=== PATIENT | male | born 1975 | race Caucasian/White ===

== ENCOUNTER 2018-04-24 11:54 | Emergency (ER) | payer MEDICARE, SELFPAY ==
[2018-04-24 11:58] VITALS: BP 112/80; PULSE 111; RESP 20; TEMP 36.4; O2SAT 98; BMI 39.0
[2018-04-24 12:30] VITALS: BP 102/83; PULSE 95; O2SAT 96
--- NOTE | 2018-04-24 12:32 | ED.SOB ---
HPI - SOB/Dyspnea <PORTILLO Portillo - Last Filed: 04/24/18 14:31> General Chief Complaint: Shortness of Breath/Dyspnea Stated Complaint: cold for about a month, hard time breathing Time Seen by Provider: 04/24/18 12:24 Source: patient and family Mode of arrival: ambulatory Limitations: no limitations History of Present Illness Patient is a 42-year-old male nonsmoker presents with his with a history of diabetes with the chief complaint of cough for 6 weeks. He denies any fevers. He does complain of wheezing, productive cough, difficulty taking deep breath. He complains of chest pain associated with cough only. Complains of sore throat associated with cough only. He has been using [id number] medications without relief. He denies any fevers, nausea, vomiting, diarrhea, abdominal pain. Patient has history of GERD respiratory history including asthma or COPD. Related Data Home Medications Medication Instructions Recorded Confirmed pregabalin [Lyrica] #0 04/29/17 Previous Rx's Medication Instructions Recorded Glucose: Home Monitoring Kit kit ACHS #1 05/15/17 Glucose: Test Strips str ACHS #100 05/15/17 insulin aspart U-100 [Novolog 15 unit SQ TIDCC #1 box 05/15/17 Flexpen U-100 Insulin] insulin glargine [Lantus Solostar 50 unit SQ QAM #1 box 05/15/17 U-100 Insulin] albuterol sulfate [ProAir HFA] 2 puff INHALATION Q4-6H PRN #18 04/24/18 gram azithromycin See Label Instructions .ROUTE 04/24/18 .COMPLEX #6 tab Allergies Allergy/AdvReac Type Severity Reaction Status Date / Time No Known Drug Allergies Allergy Verified 04/24/18 11:58 Review of Systems <ZAIRE Portillo - Last Filed: 04/24/18 14:31> Review of Systems GENERAL: Denies chills, fatigue, malaise, fever, sweats. HEENT: Denies sinus pain, ear pain, sore throat, difficulty swallowing, dizziness. RESPIRATORY: See HPI CARDIOVASCULAR: Denies chest pain, palpitations, orthopnea, edema, GASTROINTESTINAL: Denies nausea, vomiting, abdominal pain, diarrhea, constipation, melena. : Denies dysuria, frequency, incontinence, hematuria, urinary retention. MUSCULOSKELETAL: denies weakness, joint pain, or bony pain SKIN: Denies rash, skin lesions, or other NEUROLOGIC: Denies weakness, headache, numbness, change in speech, confusion, seizures, incoordination. PSYCHIATRIC: No concerning psychosocial issues. 12 point review of systems is negative except for those stated above Exam <Yolanda BabbLATOSHA tavarezP-BC - Last Filed: 04/24/18 14:31> Narrative Exam Narrative: GENERAL: This is a well-nourished, well-developed patient, sitting on stretcher HEAD: Atraumatic. Normocephalic. No temporal or scalp tenderness. EYES: Pupils equal round and reactive. Extraocular motions intact. No scleral icterus. No injection or drainage. ENT: Nose without bleeding, purulent drainage or septal hematoma. Throat without erythema, tonsillar hypertrophy or exudate. Uvula midline. Airway patent. NECK: Trachea midline. No JVD or lymphadenopathy. Supple, nontender, no meningeal signs. CARDIOVASCULAR: Regular rate and rhythm without murmurs, gallops, or rubs. RESPIRATORY: Diffuse expiratory wheezes bilaterally to auscultation. Profuse cough on exam. No accessory muscle use noted. No stridor. No increased respiratory effort noted. GASTROINTESTINAL: Abdomen soft, non-tender, nondistended. No hepato-splenomegaly, or palpable masses. No guarding. EXTREMITIES: No clubbing, cyanosis, or edema. No joint tenderness, effusion, or edema noted. BACK: Nontender without deformity or crepitance. No flank tenderness. NEURO: AOx3. SKIN: No rash or erythema. Initial Vital Signs Initial Vital Signs: Vital Signs Temperature 97.6 F 04/24/18 11:58 Pulse Rate 111 H 04/24/18 11:58 Respiratory Rate 20 04/24/18 11:58 Blood Pressure 112/80 04/24/18 11:58 Pulse Oximetry 98 04/24/18 11:58 <Jaziel Hardin DO - Last Filed: 04/24/18 14:32> Initial Vital Signs Initial Vital Signs: Vital Signs Temperature 97.6 F 04/24/18 11:58 Pulse Rate 111 H 04/24/18 11:58 Respiratory Rate 20 04/24/18 11:58 Blood Pressure 112/80 04/24/18 11:58 Pulse Oximetry 98 04/24/18 11:58 Course <ZAIRE Portillo - Last Filed: 04/24/18 14:31> Orders Ordered: ED Orders 04/24/18 12:32 XR chest 2V Stat RT Consult Eval and Treat Now Discontinued Medications Albuterol (Ventolin) 2.5 mg INH NOW ONE Stop: 04/24/18 12:53 Last Admin: 04/24/18 12:54 Dose: 2.5 mg Vital Signs - 8 hr 04/24/18 11:58 04/24/18 12:30 04/24/18 12:54 Temperature 97.6 F Pulse Rate 111 H 95 H 82 Respiratory Rate 20 14 Blood Pressure 112/80 Blood Pressure [Left Arm] 102/83 Pulse Oximetry 98 96 96 04/24/18 13:26 04/24/18 13:56 Temperature Pulse Rate 86 96 H Respiratory Rate 18 Blood Pressure 110/72 Blood Pressure [Left Arm] 105/83 Pulse Oximetry 100 93 <Jaziel Hardin DO - Last Filed: 04/24/18 14:32> Orders Ordered: ED Orders 04/24/18 12:32 XR chest 2V Stat RT Consult Eval and Treat Now Discontinued Medications Albuterol (Ventolin) 2.5 mg INH NOW ONE Stop: 04/24/18 12:53 Last Admin: 04/24/18 12:54 Dose: 2.5 mg Vital Signs - 8 hr 04/24/18 11:58 04/24/18 12:30 04/24/18 12:54 Temperature 97.6 F Pulse Rate 111 H 95 H 82 Respiratory Rate 20 14 Blood Pressure 112/80 Blood Pressure [Left Arm] 102/83 Pulse Oximetry 98 96 96 04/24/18 13:26 04/24/18 13:56 Temperature Pulse Rate 86 96 H Respiratory Rate 18 Blood Pressure 110/72 Blood Pressure [Left Arm] 105/83 Pulse Oximetry 100 93 MDM - SOB/Dyspnea <ZAIRE Portillo - Last Filed: 04/24/18 14:31> Imaging Data Chest x-ray: Radiologist's impression: [address] [address] XRay Report Signed Patient: Denzel Richmond MR#: [id number] : 1975 Acct:[id number] Age/Sex: 42 / M Date of Service: 04/24/18 Loc: ED Accession Number: [id number] Procedure: XR chest 2V Ordering Provider: Yolanda Cuevas PROCEDURE: XR CHEST 2V INDICATIONS: cough x 6 weeks TECHNIQUE: 2 views of the chest were acquired. COMPARISON: [facility], , CHEST 1 VIEW, 05/14/2017, 0:53. FINDINGS: / Surgical changes and devices: None. Lungs and pleura: No pleural effusions or pneumothorax. Lungs are clear. Mediastinum: Mediastinal contours are normal. Heart size is normal. Bones and chest wall: No suspicious bony abnormalities. Soft tissues appear unremarkable. IMPRESSION: No acute cardiopulmonary findings. Dictated by: Peggy Gutiérrez M.D. on 04/24/2018 at 13:22 Approved by: Peggy Gutiérrez M.D. on 04/24/2018 at 13:22 MDM Narrative Medical decision making narrative: Patient is a 42-year-old male who presents with chief complaint of a cough for 6 weeks. He also complains of wheezing, which improved with a nebulizer treatment in the emergency department. Of note he did have a flight yesterday but denies any changes in his cough or shortness of breath. He is not tachycardic or hypoxic on exam. Given the duration of his cough, I would treat him with azithromycin at this point time. I did give him a prescription for an albuterol inhaler as well. Discussed at length return precautions including shortness of breath, chest pain, etc. Etc. Encouraged follow-up primary. The patient remained hemodynamically stable in the emergency department. No questions or concerns on discharge. Discharge Plan Departure Patient Disposition: Home Clinical Impression: Acute lower respiratory infection Discharge Date/Time: 04/24/18 13:57 Interventions: ED Discharge Assessment Last Done: 04/24/18 13:56 Instructions: DI for Pneumonia -- Adult, DI for Atypical Pneumonia Activity Restrictions/Additional Instructions: I am starting you on an antibiotic given that you had a productive cough for 6 weeks. I am also giving a prescription for an albuterol inhaler to help with her wheezing. Please follow-up with your primary care provider in the next few days. Come back to the emergency department for any acute concerns including worsening shortness of breath, chest pain, or other acute concerns. Please be sure to keep deep breathing and use the device given to by RT. Prescriptions: New albuterol sulfate [ProAir HFA] 90 mcg/actuation HFA aerosol inhaler 2 puff INHALATION Q4-6H PRN (Reason: shortness of breath or wheezing) Qty: 18 RF: 0 azithromycin 250 mg tablet See Label Instructions .ROUTE .COMPLEX Qty: 6 RF: 0 No Action pregabalin [Lyrica] 50 MG capsule Qty: 0 RF: 0 insulin glargine [Lantus Solostar U-100 Insulin] 100 UNIT/1 ML insulin pen 50 unit SQ QAM Qty: 1 RF: 1 insulin aspart U-100 [Novolog Flexpen U-100 Insulin] 100 UNIT/1 ML insulin pen 15 unit SQ TIDCC Qty: 1 RF: 1 Glucose: Home Monitoring Kit ACHS Qty: 1 RF: 0 Glucose: Test Strips ACHS Qty: 100 RF: 0 Referrals: Karena Rodriguez DO [Primary Care Provider] - <Jaziel Hardin DO - Last Filed: 04/24/18 14:32> Cosign ED Attending Alexature Attestation: I was available for consultation during this patient's emergency department encounter
--- NOTE | 2018-04-24 12:37 | ED_ITS ---
HPI - SOB/Dyspnea <PORTILLO Portillo - Last Filed: 04/24/18 14:31> General Chief Complaint: Shortness of Breath/Dyspnea Stated Complaint: cold for about a month, hard time breathing Time Seen by Provider: 04/24/18 12:24 Source: patient and family Mode of arrival: ambulatory Limitations: no limitations History of Present Illness Patient is a 42-year-old male nonsmoker presents with his with a history of diabetes with the chief complaint of cough for 6 weeks. He denies any fevers. He does complain of wheezing, productive cough, difficulty taking deep breath. He complains of chest pain associated with cough only. Complains of sore throat associated with cough only. He has been using icla-yhs-[id number] medications without relief. He denies any fevers, nausea, vomiting, diarrhea, abdominal pain. Patient has history of GERD respiratory history including asthma or COPD. Related Data Home Medications Medication Instructions Recorded Confirmed pregabalin [Lyrica] #0 04/29/17 Previous Rx's Medication Instructions Recorded Glucose: Home Monitoring Kit kit ACHS #1 05/15/17 Glucose: Test Strips str ACHS #100 05/15/17 insulin aspart U-100 [Novolog 15 unit SQ TIDCC #1 box 05/15/17 Flexpen U-100 Insulin] insulin glargine [Lantus Solostar 50 unit SQ QAM #1 box 05/15/17 U-100 Insulin] albuterol sulfate [ProAir HFA] 2 puff INHALATION Q4-6H PRN #18 04/24/18 gram azithromycin See Label Instructions .ROUTE 04/24/18 .COMPLEX #6 tab Allergies Allergy/AdvReac Type Severity Reaction Status Date / Time No Known Drug Allergies Allergy Verified 04/24/18 11:58 Review of Systems <ZAIRE Portillo - Last Filed: 04/24/18 14:31> Review of Systems GENERAL: Denies chills, fatigue, malaise, fever, sweats. HEENT: Denies sinus pain, ear pain, sore throat, difficulty swallowing, dizziness. RESPIRATORY: See HPI CARDIOVASCULAR: Denies chest pain, palpitations, orthopnea, edema, GASTROINTESTINAL: Denies nausea, vomiting, abdominal pain, diarrhea, constipation, melena. : Denies dysuria, frequency, incontinence, hematuria, urinary retention. MUSCULOSKELETAL: denies weakness, joint pain, or bony pain SKIN: Denies rash, skin lesions, or other NEUROLOGIC: Denies weakness, headache, numbness, change in speech, confusion, seizures, incoordination. PSYCHIATRIC: No concerning psychosocial issues. 12 point review of systems is negative except for those stated above Exam <Yolanda BabbLATOSHA tavarezP-BC - Last Filed: 04/24/18 14:31> Narrative Exam Narrative: GENERAL: This is a well-nourished, well-developed patient, sitting on stretcher HEAD: Atraumatic. Normocephalic. No temporal or scalp tenderness. EYES: Pupils equal round and reactive. Extraocular motions intact. No scleral icterus. No injection or drainage. ENT: Nose without bleeding, purulent drainage or septal hematoma. Throat without erythema, tonsillar hypertrophy or exudate. Uvula midline. Airway patent. NECK: Trachea midline. No JVD or lymphadenopathy. Supple, nontender, no meningeal signs. CARDIOVASCULAR: Regular rate and rhythm without murmurs, gallops, or rubs. RESPIRATORY: Diffuse expiratory wheezes bilaterally to auscultation. Profuse cough on exam. No accessory muscle use noted. No stridor. No increased respiratory effort noted. GASTROINTESTINAL: Abdomen soft, non-tender, nondistended. No hepato-splenomegaly , or palpable masses. No guarding. EXTREMITIES: No clubbing, cyanosis, or edema. No joint tenderness, effusion, or edema noted. BACK: Nontender without deformity or crepitance. No flank tenderness. NEURO: AOx3. SKIN: No rash or erythema. Initial Vital Signs Initial Vital Signs: Vital Signs Temperature 97.6 F 04/24/18 11:58 Pulse Rate 111 H 04/24/18 11:58 Respiratory Rate 20 04/24/18 11:58 Blood Pressure 112/80 04/24/18 11:58 Pulse Oximetry 98 04/24/18 11:58 <Jaziel Hardin DO - Last Filed: 04/24/18 14:32> Initial Vital Signs Initial Vital Signs: Vital Signs Temperature 97.6 F 04/24/18 11:58 Pulse Rate 111 H 04/24/18 11:58 Respiratory Rate 20 04/24/18 11:58 Blood Pressure 112/80 04/24/18 11:58 Pulse Oximetry 98 04/24/18 11:58 Course <ZAIRE Portillo - Last Filed: 04/24/18 14:31> Orders Ordered: ED Orders 04/24/18 12:32 XR chest 2V Stat RT Consult Eval and Treat Now Discontinued Medications Albuterol (Ventolin) 2.5 mg INH NOW ONE Stop: 04/24/18 12:53 Last Admin: 04/24/18 12:54 Dose: 2.5 mg Vital Signs - 8 hr 04/24/18 11:58 04/24/18 12:30 04/24/18 12:54 Temperature 97.6 F Pulse Rate 111 H 95 H 82 Respiratory Rate 20 14 Blood Pressure 112/80 Blood Pressure [Left Arm] 102/83 Pulse Oximetry 98 96 96 04/24/18 13:26 04/24/18 13:56 Temperature Pulse Rate 86 96 H Respiratory Rate 18 Blood Pressure 110/72 Blood Pressure [Left Arm] 105/83 Pulse Oximetry 100 93 <Jaziel Hardin DO - Last Filed: 04/24/18 14:32> Orders Ordered: ED Orders 04/24/18 12:32 XR chest 2V Stat RT Consult Eval and Treat Now Discontinued Medications Albuterol (Ventolin) 2.5 mg INH NOW ONE Stop: 04/24/18 12:53 Last Admin: 04/24/18 12:54 Dose: 2.5 mg Vital Signs - 8 hr 04/24/18 11:58 04/24/18 12:30 04/24/18 12:54 Temperature 97.6 F Pulse Rate 111 H 95 H 82 Respiratory Rate 20 14 Blood Pressure 112/80 Blood Pressure [Left Arm] 102/83 Pulse Oximetry 98 96 96 04/24/18 13:26 04/24/18 13:56 Temperature Pulse Rate 86 96 H Respiratory Rate 18 Blood Pressure 110/72 Blood Pressure [Left Arm] 105/83 Pulse Oximetry 100 93 MDM - SOB/Dyspnea <ZAIRE Portillo - Last Filed: 04/24/18 14:31> Imaging Data Chest x-ray: Radiologist's impression: [address] [address] XRay Report Signed Patient: Denzel Richmond MR#: [id number] : 1975 Acct:[id number] Age/Sex: 42 / M Date of Service: 04/24/18 Loc: ED Accession Number: [id number] Procedure: XR chest 2V Ordering Provider: Yolanda Cuevas PROCEDURE: XR CHEST 2V INDICATIONS: cough x 6 weeks TECHNIQUE: 2 views of the chest were acquired. COMPARISON: [facility], , CHEST 1 VIEW, 05/14/2017, 0:53. FINDINGS: / Surgical changes and devices: None. Lungs and pleura: No pleural effusions or pneumothorax. Lungs are clear. Mediastinum: Mediastinal contours are normal. Heart size is normal. Bones and chest wall: No suspicious bony abnormalities. Soft tissues appear unremarkable. IMPRESSION: No acute cardiopulmonary findings. Dictated by: Peggy Gutiérrez M.D. on 04/24/2018 at 13:22 Approved by: Peggy Gutiérrez M.D. on 04/24/2018 at 13:22 MDM Narrative Medical decision making narrative: Patient is a 42-year-old male who presents with chief complaint of a cough for 6 weeks. He also complains of wheezing, which improved with a nebulizer treatment in the emergency department. Of note he did have a flight yesterday but denies any changes in his cough or shortness of breath. He is not tachycardic or hypoxic on exam. Given the duration of his cough, I would treat him with azithromycin at this point time. I did give him a prescription for an albuterol inhaler as well. Discussed at length return precautions including shortness of breath, chest pain, etc. Etc. Encouraged follow-up primary. The patient remained hemodynamically stable in the emergency department. No questions or concerns on discharge. Discharge Plan Departure Patient Disposition: Home Clinical Impression: Acute lower respiratory infection Discharge Date/Time: 04/24/18 13:57 Interventions: ED Discharge Assessment Last Done: 04/24/18 13:56 Instructions: DI for Pneumonia -- Adult, DI for Atypical Pneumonia Activity Restrictions/Additional Instructions: I am starting you on an antibiotic given that you had a productive cough for 6 weeks. I am also giving a prescription for an albuterol inhaler to help with her wheezing. Please follow-up with your primary care provider in the next few days. Come back to the emergency department for any acute concerns including worsening shortness of breath, chest pain, or other acute concerns. Please be sure to keep deep breathing and use the device given to by RT. Prescriptions: New albuterol sulfate [ProAir HFA] 90 mcg/actuation HFA aerosol inhaler 2 puff INHALATION Q4-6H PRN (Reason: shortness of breath or wheezing) Qty: 18 RF: 0 azithromycin 250 mg tablet See Label Instructions .ROUTE .COMPLEX Qty: 6 RF: 0 No Action pregabalin [Lyrica] 50 MG capsule Qty: 0 RF: 0 insulin glargine [Lantus Solostar U-100 Insulin] 100 UNIT/1 ML insulin pen 50 unit SQ QAM Qty: 1 RF: 1 insulin aspart U-100 [Novolog Flexpen U-100 Insulin] 100 UNIT/1 ML insulin pen 15 unit SQ TIDCC Qty: 1 RF: 1 Glucose: Home Monitoring Kit ACHS Qty: 1 RF: 0 Glucose: Test Strips ACHS Qty: 100 RF: 0 Referrals: Karena Rodriguez DO [Primary Care Provider] - <Jaziel Hardin DO - Last Filed: 04/24/18 14:32> Cosign ED Attending Alexature Attestation: I was available for consultation during this patient's emergency department encounter
[2018-04-24 12:54] VITALS: PULSE 82; RESP 14; O2SAT 96
[2018-04-24] MEDS: ALBUTEROL 2.5 MG/3 ML NEB (ADULT) INH (12:54)
[2018-04-24 13:26] VITALS: BP 105/83; PULSE 86; O2SAT 100
[2018-04-24 13:56] VITALS: BP 110/72; PULSE 96; RESP 18; O2SAT 93
== END 2018-04-24 13:57 | disposition home or self-care (01) ==
PROVIDERS: Emergency Provider Nurse Practitioner Family; Family Provider Family Medicine; PCP Family Medicine
DX: J22 Unspecified acute lower respiratory infection (principal)
CPT/HCPCS: 71046; 94640; 94667; 99282; 99283; J7613

== ENCOUNTER 2022-05-26 20:01 | Emergency (ER) | payer OTHER, SELFPAY ==
[2022-05-26 20:06] VITALS: BP 129/94; PULSE 74; RESP 16; TEMP 36.3; O2SAT 95; BMI 37.5
[2022-05-26] MEDS: TET,DIPH,PERTUSS(ACELL),VAC/PF 0.5 ML SYRINGE IM (21:20)
--- NOTE | 2022-05-26 23:01 | ED_ITS ---
HPI - Wound/Laceration General Chief Complaint: Wound/Laceration Stated Complaint: Left middle finger lac Time Seen by Provider: 05/26/22 21:19 Source: patient Mode of arrival: Ambulatory History of Present Illness HPI narrative: 46-year-old gentleman with a history of diabetes, hypothyroidism, hypertension, hyperlipidemia with chronic back pain who presents after cutting his left middle finger on a knife while he was chopping onions. It is flap on the medial edge of the tip of the finger not involving the nail bed. Bleeding has been controlled. Related Data Home Medications Medication Instructions Recorded Confirmed pregabalin 50 mg capsule (Lyrica) ##0 04/29/17 alendronate 70 mg tablet 70 mg PO QWEEK 10/29/20 10/29/20 cyclobenzaprine 10 mg tablet 10 mg PO BEDTIME 10/29/20 10/29/20 empagliflozin 25 mg tablet 25 mg PO DAILY 10/29/20 10/29/20 gabapentin 400 mg capsule 400 mg PO TID 10/29/20 10/29/20 levothyroxine 100 mcg capsule 100 mcg PO DAILY 10/29/20 10/29/20 lisinopril 20 mg tablet 20 mg PO DAILY 10/29/20 10/29/20 simvastatin 80 mg tablet 80 mg PO DAILY 10/29/20 10/29/20 Previous Rx's Medication Instructions Recorded Glucose: Home Monitoring Kit kit ACHS ##1 05/15/17 Glucose: Test Strips str ACHS ##100 05/15/17 insulin aspart U-100 100 unit/mL 15 unit (0.15 mL) SQ TIDCC ##1 05/15/17 (3 mL) subcutaneous pen (Novolog Flexpen U-100 Insulin aspart) insulin glargine 100 unit/mL (3 50 unit (0.5 mL) SQ QAM ##1 05/15/17 mL) subcutaneous pen (Lantus Solostar U-100 Insulin) albuterol sulfate 90 mcg/actuation 2 puff inhalation Q4-6H PRN 04/24/18 aerosol inhaler (ProAir HFA) shortness of breath or wheezing #18 grams azithromycin 250 mg tablet See Rx Instructions PO .COMPLEX #6 04/24/18 tabs txrpvpqp-heimmsxem-bkjsizqpl 3.5 4 drp otic (ear) TID #10 mL 07/09/21 mg/mL-10,000 unit/mL-1 % ear solution Allergies Allergy/AdvReac Type Severity Reaction Status Date / Time No Known Drug Allergies Allergy Verified 10/29/20 13:04 Review of Systems Review of Systems Narrative: Remainder of complete review of systems is otherwise unremarkable except for that included in the HPI. Patient History Family History Brother Hypertension Father Hypertension CVA (cerebral infarction) Hyperlipidemia Grandfather Hypertension Grandmother Hypertension Mother Hypertension Hyperlipidemia Grandfather Hypertension Grandfather OR (myocardial infarction) Grandmother Hypertension Social History Smoking Status: Never smoker Smoking Status: Never smoker alcohol intake frequency: holidays/special occasions only Substance Use Type: does not use Exam Initial Vital Signs Initial Vital Signs: Vital Signs Temperature 97.3 F L 05/26/22 20:06 Pulse Rate 74 05/26/22 20:06 Respiratory Rate 16 05/26/22 20:06 Blood Pressure 129/94 H 05/26/22 20:06 Pulse Oximetry 95 05/26/22 20:06 Oxygen Delivery Method 05/26/22 20:06 General: Alert appropriate in no acute distress Respiratory: Able to speak in full sentences, no obvious respiratory distress Skin: No obvious rashes, warm and dry Neurologic: Grossly intact no obvious asymmetries or abnormalities Psych: appropriate insight and affect, cooperative Extremity: 1.5 cm flap like lesion on the medial aspect of the left middle finger. He is neurovascularly intact. Nail bed is not involved. Procedures Laceration Repair Left middle finger: Time of procedure: 23:17 Site: hand Side (If applicable): left Size (cm): 1.5 Description: flap Depth: simple, single layer Local Anesthetic: lidocaine 2% Amount of anesthesia used (mL): 2 Pre-repair: wound explored, irrigated extensively and deep structures intact Skin layer closed with: nylon Skin layer suture size: 4-0 Number of sutures: 2 Technique: simple, interrupted and horizontal mattress Course Orders Ordered: Discontinued Medications Diphtheria/Tetanus/Acell Pertussis (Tet,Diph,Pertuss(Acell),Vac/Pf 0.5 Ml Syringe) 0.5 ml IM .ONCE ONE Stop: 05/26/22 20:38 Last Admin: 05/26/22 21:20 Dose: 0.5 ml Documented By: AT Vital Signs Vital signs: Vital Signs - 8 hr 05/26/22 20:06 Temperature 97.3 F L Pulse Rate 74 Respiratory Rate 16 Blood Pressure 129/94 H Pulse Oximetry 95 Oxygen Delivery Method Room Air MDM - Wound/Laceration MDM Narrative Medical decision making narrative: CC: Small laceration to the distal left middle finger. New problem, self- limited Complicating co-morbidities: Diabetes Corroborating data: Data collected from: patient, Differential considered: No bed involvement, tendon or deep structure involvement, infection Exam documented above, pertinent findings include: Fairly superficial flap-like laceration without deep tissue involvement Treatments: A single horizontal mattress and a single interrupted mattress or used to close the space and reapproximate edges of the wound Discussion: Superficial laceration easily repaired. Considered need for imaging however once anesthetized the superficial nature of it was easily confirmed and I did not feel that imaging was required today. Reviewed signs and symptoms of infection, keeping the wound covered and removing stitches on or about 06/02 Disposition: see below, along with detailed discharge instructions that have been reviewed with patient as well as indications for ED re-evaluation and additional outpatient follow up Discharge Plan Departure Patient Disposition: Home Clinical Impression: Laceration Instructions: DI for Minor Laceration Activity Restrictions/Additional Instructions: Thank you for coming in tonight With 2 stitches I was able to close up your finger laceration. The stitches will need to come out on or about June 02. Keep the area covered with a little antibiotic ointment. If there is any signs of infection, increasing redness, swelling increasing pain you do need to be seen and re-evaluated. I hope this heals quickly Prescriptions: No Action cyclobenzaprine 10 mg tablet 10 mg PO BEDTIME alendronate 70 mg tablet 70 mg PO QWEEK empagliflozin 25 mg tablet 25 mg PO DAILY gabapentin 400 mg capsule 400 mg PO TID lisinopril 20 mg tablet 20 mg PO DAILY soypnlks-qjvdawohq-QV 3.5-10,000-1 mg/mL-unit/mL-% solution 4 drp otic (ear) TID Qty: 10 2RF simvastatin 80 mg tablet 80 mg PO DAILY levothyroxine 100 mcg capsule 100 mcg PO DAILY pregabalin [Lyrica] 50 MG capsule Qty: 0 insulin glargine [Lantus Solostar U-100 Insulin] 100 UNIT/1 ML insulin pen 50 unit SQ QAM Qty: 1 1RF insulin aspart U-100 [Novolog Flexpen U-100 Insulin] 100 UNIT/1 ML insulin pen 15 unit SQ TIDCC Qty: 1 1RF Glucose: Home Monitoring Kit ACHS Qty: 1 0RF Glucose: Test Strips ACHS Qty: 100 0RF albuterol sulfate [ProAir HFA] 90 mcg/actuation HFA aerosol inhaler 2 puff INHALATION Q4-6H PRN (Reason: shortness of breath or wheezing) Qty: 18 0RF azithromycin 250 mg tablet See Rx Instructions .ROUTE .COMPLEX Qty: 6 0RF Rx Instructions: take 500 mg today (day 1), then 250 mg for 4 days (days 2-5) Referrals: Karena Rodriguez DO [Primary Care Provider] - Stand Alone Forms: Patient Portal/API
[2022-05-26 23:27] VITALS: BP 139/95; PULSE 80; RESP 20; O2SAT 95
== END 2022-05-26 23:27 | disposition home or self-care (01) ==
PROVIDERS: Emergency Provider Emergency Medicine; Family Provider Family Medicine; PCP Family Medicine
DX: S61.213A Laceration without foreign body of left middle finger without damage to nail, initial encounter (principal); W26.0XXA Contact with knife, initial encounter; Z79.899 Other long term (current) drug therapy; Z23 Encounter for immunization
CPT/HCPCS: 12001; 90471; 99283; 90715

== ENCOUNTER 2023-08-10 18:17 | Emergency (ER) | payer OTHER, SELFPAY ==
[2023-08-10] VITALS (8 sets, daily range): BP systolic 113–138; BP diastolic 66–86; PULSE 67–108; RESP 16–18; TEMP 36.9; O2SAT 93–97; BMI 32.5
[2023-08-10] MEDS: SODIUM CHLORIDE 0.9% 1,000 ML 1000 ML IV (18:46)
[2023-08-10] MEDS: ONDANSETRON 4 MG/2 ML INJ IV (18:47)
[2023-08-10 18:52] LABS: Add Manual Diff / Slide Review NO; Basophils Absolute Auto 100 /uL (0-100); Basophils Percent Auto 0.7 % (0-2); Eosinophils Absolute Auto 200 /uL (0-450); Eosinophils Percent Auto 2.1 % (2-4); Hematocrit 45.4 % (41-53); Hemoglobin 15.7 g/dL (13.5-17.5); Lymphocytes Absolute Auto 2300 /uL (1100-4500); Lymphocytes Percent Auto 25.7 % (25-40); Mean Corpuscular HGB Conc 34.6 % (30-36); Mean Corpuscular Hemoglobin 30.3 PG (26-34); Mean Corpuscular Volume 87.4 fL (80-100); Monocytes Absolute Auto 500 /uL (0-900); Monocytes Percent Auto 5.9 % (3-14); Neutrophils Absolute Auto 6000 /uL (1500-7000); Neutrophils Percent Auto 65.6 % (50-75); Platelet Count 328 X10^3/uL (150-400); Red Blood Cell Count 5.19 X10^6/uL (4.5-5.9); Red Cell Distribution Width 12.7 % (11.6-14.8); White Blood Cell Count 9.1 X10^3/uL (4.5-11.0)
[2023-08-10 19:00] LABS: Alanine Aminotransferase 41 IU/L (<50); Albumin 4.7 g/dL (3.5-5.0); Albumin Globulin Ratio 1.4 (1.0-2.8); Alkaline Phosphatase 71 U/L (38-126); Aspartate Aminotransferase 27 IU/L (17-59); BUN Creatinine Ratio 14.8 (6-22); Bilirubin Total 0.6 mg/dL (0.2-1.3); Blood Urea Nitrogen 18 mg/dL (9-20); Calcium 9.8 mg/dL (8.4-10.2); Carbon Dioxide 31 mmol/L (22-32); Chloride 101 mmol/L (98-107); Estimated Glomerular Filt Rate > 60 mL/min (>60); Globulin 3.4 g/dL (1.7-4.1); Glucose 130 mg/dL (70-100); HEMOLYSIS < 15 (0-50); Potassium 4.5 mmol/L (3.4-5.1); Sodium 139 mmol/L (137-145); Total Protein 8.1 g/dL (6.3-8.2)
--- NOTE | 2023-08-10 20:26 | ED_ITS ---
HPI - Headache General Chief Complaint: Headache Stated Complaint: headaches for 3 weeks Time Seen by Provider: 08/10/23 20:03 Source: patient, RN notes reviewed and old records reviewed Mode of arrival: Ambulatory History of Present Illness HPI Narrative: 47-year-old male with history hypertension, diabetes, CRPS for his lower extremity patient presents with complaint of headache for the past 3 weeks. Describes it as starting with just a mild headache and then progressively worsening. It is never resolved it improves a little bit about 2 in the afternoon and then worsened again in the evening around 6:00 p.m.. He notes bright lights make it symptoms worse. Being in the dark and ice are helpful. He is tried Excedrin as well as Vicodin for his headaches which he describes as mildly helpful. He states it has never gone away. He describes it as behind both his eyes but starting more on the right. He denies any acute vision changes. He has had nausea but no vomiting, no chest pain or shortness of breath, no new numbness tingling or weakness extremities. Does note some paresthesias and chronic pain lower extremity secondary to CRPS. Patient states no syncope. No fevers. She developed a headache and a couple days later had some nasal congestion cough cold symptoms last 3 or 4 days but then resolved. Has not ever had any speech difficulties. Has not had migraines in the past that he is aware of. He did have a change to his medications stopped his insulin 2 weeks ago because his A1c was 5.1. Sugars have ranged from 60-180. Patient notes he has had right ankle surgery x4, tonsils adenoids and uvulectomy. No known drug allergies. No tobacco, alcohol or recreational drugs. Accompanied by his . Related Data Home Medications Medication Instructions Recorded Confirmed pregabalin 50 mg capsule (Lyrica) ##0 04/29/17 alendronate 70 mg tablet 70 mg PO QWEEK 10/29/20 10/29/20 cyclobenzaprine 10 mg tablet 10 mg PO BEDTIME 10/29/20 10/29/20 empagliflozin 25 mg tablet 25 mg PO DAILY 10/29/20 10/29/20 gabapentin 400 mg capsule 400 mg PO TID 10/29/20 10/29/20 levothyroxine 100 mcg capsule 100 mcg PO DAILY 10/29/20 10/29/20 lisinopril 20 mg tablet 20 mg PO DAILY 10/29/20 10/29/20 simvastatin 80 mg tablet 80 mg PO DAILY 10/29/20 10/29/20 Previous Rx's Medication Instructions Recorded Glucose: Home Monitoring Kit kit ACHS ##1 05/15/17 Glucose: Test Strips str ACHS ##100 05/15/17 insulin aspart U-100 100 unit/mL 15 unit (0.15 mL) SQ TIDCC ##1 05/15/17 (3 mL) subcutaneous pen (Novolog FlexPen U-100 Insulin aspart) insulin glargine 100 unit/mL (3 50 unit (0.5 mL) SQ QAM ##1 05/15/17 mL) subcutaneous pen (Lantus Solostar U-100 Insulin) albuterol sulfate 90 mcg/actuation 2 puff inhalation Q4-6H PRN 04/24/18 aerosol inhaler (ProAir HFA) shortness of breath or wheezing #18 grams azithromycin 250 mg tablet See Rx Instructions PO .COMPLEX #6 04/24/18 tabs [id number]-gzdmndvtm-rbfdtkbvk 3.5 4 drp otic (ear) TID #10 mL 10/29/20 mg/mL-10,000 unit/mL-1 % ear solution amoxicillin 875 mg-potassium 1 tab PO BID #20 tabs 08/10/23 clavulanate 125 mg tablet Allergies Allergy/AdvReac Type Severity Reaction Status Date / Time No Known Drug Allergies Allergy Verified 08/10/23 18:24 Review of Systems Review of Systems ROS Unobtainable: All systems reviewed & are unremarkable except as noted in HPI and below Patient History Family History Brother Hypertension Father Hypertension CVA (cerebral infarction) Hyperlipidemia Grandfather Hypertension Grandmother Hypertension Mother Hypertension Hyperlipidemia Grandfather Hypertension Grandfather IA (myocardial infarction) Grandmother Hypertension Social History Smoking Status: Never smoker Smoking Status: Never smoker alcohol intake frequency: holidays/special occasions only Substance Use Type: does not use Exam Narrative Exam Narrative: GEN: well nourished, well appearing male, alert and oriented x 3, patient appears to be in moderate distress. HEENT: Atraumatic, pupils are equal round reactive to light, extraocular movements are intact, nares are clear, TMs are clear with no fluid, there is no conjunctival pallor. Throat is clear without any exudates, erythema, tonsillar enlargement or uvular deviation, no facial droop. HEART: Regular rate and rhythm without murmur, clicks, rubs. Pulses are equal in upper and lower extremities LUNGS:Lungs clear to auscultation, no wheezes, rales, crackles, chest moves symmetrically ABD:bowel sounds normal, soft, non-tender, no guarding, rebound, rigidity, no masses noted, no hepatosplenomegaly :No CVA tenderness MSCL: Non-tender, no muscle atrophy, muscles strength 5/5 upper and lower extremities, full range of motion, normal gait NEURO:CN 2-12 intact, sensation normal, reflexes 2/4 upper and lower extremities. finger nose finger test normal, heel winkler test normal SKIN: Rash, erythema or other skin changes. Initial Vital Signs Initial Vital Signs: Vital Signs Temperature 98.4 F 08/10/23 18:24 Pulse Rate 108 H 08/10/23 18:24 Respiratory Rate 18 08/10/23 18:24 Blood Pressure 138/86 08/10/23 18:24 Pulse Oximetry 97 08/10/23 18:24 Oxygen Delivery Method Room Air 08/10/23 18:24 Course Orders Ordered: ED Orders 08/10/23 18:39 CMP [Comprehensive Metabolic Panel] Stat Complete Blood Count AUTO DIFF Stat 08/10/23 20:35 CT angio head and neck Stat CT head/brain wo con Stat Discontinued Medications Amoxicillin/Clavulanate Potassium (Amoxicillin/Clav 875/125 Mg) 1 tab PO NOW ONE Stop: 08/10/23 22:07 Last Admin: 08/10/23 22:11 Dose: 1 tab Documented By: ENMA Sodium Chloride (Normal Saline 0.9%) 1,000 mls @ 1,000 mls/hr IV BOLUS ONE Stop: 08/10/23 19:36 Last Infusion: 08/10/23 20:13 Dose: Infused Documented By: Admin: 08/10/23 18:46 Dose: 1,000 mls/hr Documented By: TESS Ketorolac Tromethamine (Ketorolac 30 Mg/Ml Vial) 15 mg IV NOW ONE Stop: 08/10/23 21:19 Last Admin: 08/10/23 21:26 Dose: 15 mg Documented By: ENMA Metoclopramide HCl (Metoclopramide 10 Mg/2 Ml Inj) 10 mg IV NOW ONE Stop: 08/10/23 21:56 Last Admin: 08/10/23 22:01 Dose: 10 mg Documented By: ENMA Morphine Sulfate (Morphine 4 Mg/Ml Inj) 4 mg IV NOW ONE Stop: 08/10/23 22:06 Last Admin: 08/10/23 22:11 Dose: 4 mg Documented By: ENMA Ondansetron HCl (Ondansetron 4 Mg/2 Ml Inj) 4 mg IV NOW ONE Stop: 08/10/23 18:38 Last Admin: 08/10/23 18:47 Dose: 4 mg Documented By: TESS Ondansetron HCl (Ondansetron 4 Mg Odt Prepack) 1 bottle MISC DIRECTED ONE Stop: 08/10/23 22:27 Last Admin: 08/10/23 22:41 Dose: 1 bottle Documented By: RAQUEL Tramadol HCl (Tramadol 50 Mg Prepack) 1 bottle MISC DIRECTED ONE Stop: 08/10/23 22:26 Last Admin: 08/10/23 22:41 Dose: 1 bottle Documented By: RAQUEL Vital Signs Vital signs: Vital Signs - 8 hr 08/10/23 18:24 08/10/23 20:35 08/10/23 20:36 Temperature 98.4 F Pulse Rate 108 H 75 Respiratory Rate 18 Blood Pressure 138/86 113/66 Pulse Oximetry 97 97 Oxygen Delivery Method Room Air 08/10/23 20:36 08/10/23 21:00 08/10/23 21:00 Temperature Pulse Rate 75 72 Respiratory Rate Blood Pressure 123/83 Pulse Oximetry 96 94 Oxygen Delivery Method 08/10/23 21:30 08/10/23 21:30 08/10/23 22:00 Temperature Pulse Rate 75 67 Respiratory Rate Blood Pressure 128/74 Pulse Oximetry 93 94 Oxygen Delivery Method 08/10/23 22:30 08/10/23 22:41 08/10/23 22:41 Temperature Pulse Rate 74 78 Respiratory Rate 16 Blood Pressure 118/67 Pulse Oximetry 93 94 Oxygen Delivery Method Room Air MDM - Headache Lab Data 08/10/23 18:39 08/10/23 18:39 Labs: Lab Results 08/10/23 Range/Units 18:39 WBC 9.1 (4.5-11.0) X10^3/uL RBC 5.19 (4.5-5.9) X10^6/uL Hgb 15.7 (13.5-17.5) g/dL Hct 45.4 (41-53) % MCV 87.4 (80-100) fL MCH 30.3 (26-34) PG MCHC 34.6 (30-36) % RDW 12.7 (11.6-14.8) % Plt Count 328 (150-400) X10^3/uL Neut % (Auto) 65.6 (50-75) % Lymph % (Auto) 25.7 (25-40) % Woodruff % (Auto) 5.9 (3-14) % Eos % (Auto) 2.1 (2-4) % Baso % (Auto) 0.7 (0-2) % Neut # (Auto) 6000 (0740-1567) /uL Lymph # (Auto) 2300 (6117-6430) /uL Woodruff # (Auto) 500 (0-900) /uL Eos # (Auto) 200 (0-450) /uL Baso # (Auto) 100 (0-100) /uL Sodium 139 (137-145) mmol/L Potassium 4.5 (3.4-5.1) mmol/L Chloride 101 (98-107) mmol/L Carbon Dioxide 31 (22-32) mmol/L BUN 18 (9-20) mg/dL Creatinine 1.22 (0.66-1.25) mg/dL Estimated GFR > 60 (>60) mL/min BUN/Creatinine Ratio 14.8 (6-22) Glucose 130 H (70-100) mg/dL Calcium 9.8 (8.4-10.2) mg/dL Total Bilirubin 0.6 (0.2-1.3) mg/dL AST 27 (17-59) IU/L ALT 41 (<50) IU/L Alkaline Phosphatase 71 (38-126) U/L Total Protein 8.1 (6.3-8.2) g/dL Albumin 4.7 (3.5-5.0) g/dL Globulin 3.4 (1.7-4.1) g/dL Albumin/Globulin Ratio 1.4 (1.0-2.8) Imaging Data CT scan - head: Radiologist's Impression: [address] [address] [address] Scan Report Signed Patient: Denzel Richmond MR#: [id number] : 1975 Acct:[id number] Age/Sex: 47 / M Date of Service: 08/10/23 Loc: ED Accession Number: [id number] Procedure: CT head/brain wo con Ordering Provider: Yolanda Gamez D.O. PROCEDURE: CT HEAD/BRAIN WO CON INDICATIONS: grullon x 3 weeks without resolution TECHNIQUE: Noncontrast 4.5 mm thick angled axial sections acquired from the foramen magnum to the vertex, with coronal and sagittal reformats. For radiation dose reduction, the following was used: automated exposure control, adjustment of mA and/or kV according to patient size. COMPARISON: [facility], CT, HEAD WITHOUT CONTRAST, 05/19/2017, 5:15. FINDINGS: Image quality: Diagnostic. CSF spaces: Basal cisterns are patent. No extra-axial fluid collections. Ventricles are normal in size and shape. Brain: No midline shift. No intracranial masses or hemorrhage. Khoury-white matter interface is normal. Skull and face: Calvarium and visualized facial bones are intact, without suspicious lesions. Sinuses: Right paranasal sinus mucosal thickening. The mastoids are clear. IMPRESSION: No acute intracranial pathology. Dictated by: Evaristo Mccauley M.D. on 08/10/2023 at 21:32 Approved by: Evaristo Mccauley M.D. on 08/10/2023 at 21:33 CTA - brain/neck: Radiologist's Impression: Denzel Richmond??47??M??1975 ? Allergy/Adv: No Known Drug Allergies Close Head/Neck CTA (Signed) Evaristo Mccauley - 08/10/[address] (Signed) Evaristo Mccauley - 08/10/23 Chest X-Ray (Signed) Peggy Gutiérrez - 04/24/18 Launch?Image [address] [address] [address] Scan Report Signed Patient: Denzel Richmond MR#: [id number] : 1975 Acct:[id number] Age/Sex: 47 / M Date of Service: 08/10/23 Loc: Accession Number: [id number] Procedure: CT angio head and neck Ordering Provider: Yolanda Gamez D.O. PROCEDURE: CT ANGIO HEAD AND NECK INDICATIONS: grullon x 3 weeks without resolution TECHNIQUE: After the administration of intravenous contrast, 1 mm thick sections acquired from the aortic arch through the [place] of [place]. 3-dimensional pxtkiet-ppushruuu-fthdvzznyk (MIP) and/or volume rendering reformats were acquired of the central intracranial vasculature and neck separately. For radiation dose reduction, the following was used: automated exposure control, adjustment of mA and/or kV according to patient size. COMPARISON: None. FINDINGS: Image quality: Diagnostic. BRAIN: CSF spaces: Ventricles are normal in size and shape. Basal cisterns are patent. No extra-axial fluid collections. Brain: No significant abnormality of the brain can be seen. Skull and face: Calvarium and facial bones appear intact, without suspicious lesions. Orbits appear normal. Sinuses: Sinuses and mastoids are clear. HEAD CT ANGIOGRAPHY: Anterior circulation: Intracranial internal carotid arteries are normal in size and flow. The flow within the paired anterior cerebral arteries is normal and symmetric. The flow within the middle cerebral arteries is normal and symmetric. The anterior communicating artery is seen. No aneurysms are seen. Posterior circulation: Visualized portions of the vertebral arteries demonstrate normal caliber, and join to form a normal appearing basilar artery. Flow within the posterior cerebral arteries is normal and symmetric. No aneurysms are seen. NECK CT ANGIOGRAPHY: Carotid system: The great vessels demonstrate a conventional anatomy as they arise from the aortic arch. The origins of the common carotid arteries appear patent. The common carotid arteries demonstrate normal caliber and courses. The bifurcation regions are both widely patent. The internal carotid arteries demonstrate normal calibers and courses. Posterior circulation: The origins of the vertebral arteries both appear widely patent. The more superior extracranial portions of both vertebral arteries also demonstrate normal courses and calibers. They join to form a normal appearing basilar artery. Soft tissues: Visualized neck soft tissues demonstrate no suspicious abnormalities. Bones: No suspicious bony lesions. Visualized cervical spine appears normally aligned. Mild degenerative changes of the spine. IMPRESSION: No significant intracranial arterial abnormality is seen. No significant abnormality is seen within the arteries of the neck. Any quantitative measurements of stenosis were performed using NASCET criteria. Dictated by: Evaristo Mccauley M.D. on 08/10/2023 at 21:34 Approved by: Evaristo Mccauley M.D. on 08/10/2023 at 21:36 [facility] Narrative Medical decision making narrative: 47-year-old male with a history of hypertension, diabetes type 2, dyslipidemia, complex regional pain syndrome of his lower extremity who presents with complaint of persistent migraine like headache for the past 3 weeks with no resolution. Patient's neurologic exam is overall normal although range of motion of his eyes seems to worsen his symptoms. Patient has had medication changes with stopping his insulin and had some cold-like symptoms what both of these were after has headache began. Cold-like symptoms resolved after 3 or 4 days and does not have any meningeal symptoms here, nontoxic. CBC shows normal white count, hemoglobin and platelets. Chemistry shows sodium 139 potassium 4 5 chloride of 101 carbon dioxide 31 BUN 13 creatinine 1.22 glucose is 130 otherwise negative LFTs. Head CT as negative with no acute change. There is some right paranasal sinus mucosal thickening. And CT angio is negative for acute change of the vessels of the head or neck. Patient received Zofran, Toradol, fluids still felt slightly nauseated with persistent headache. Give additional dose of pain medication and Reglan. Discussed with patient and family notes he has had some nasal congestion that has been pretty persistent. Discussed possible right sinusitis although he describes pain as being little bit more in the left and then radiating over to the right. Does not have any other acute changes on imaging otherwise is well- appearing. After discussion we will treat for potential sinusitis but discussed need for follow-up. Discharge Plan Departure Patient Disposition: Home Clinical Impression: Headache, Sinusitis Activity Restrictions/Additional Instructions: Follow up for recheck. Your imaging of your head shows a small amount of thickening of the sinus such as a sinusitis. There is no other changes to the brain or vessels in your head or neck. You may have a little bit of sinusitis causing some of your headache and symptoms. Take oral antibiotic until completed. Prescription was printed. Please return for rapidly worsening symptoms, fevers, passing out, new numbness tingling or weakness, persistent vomiting, new chest pain or shortness of breath or other new or concerning changes. Prescriptions: New amoxicillin-pot clavulanate 875-125 mg tablet 1 tab PO BID Qty: 20 0RF No Action cyclobenzaprine 10 mg tablet 10 mg PO BEDTIME alendronate 70 mg tablet 70 mg PO QWEEK empagliflozin 25 mg tablet 25 mg PO DAILY gabapentin 400 mg capsule 400 mg PO TID lisinopril 20 mg tablet 20 mg PO DAILY xphcwcqv-cpqnvfgqg-RU 3.5-10,000-1 mg/mL-unit/mL-% solution 4 drp otic (ear) TID Qty: 10 2RF simvastatin 80 mg tablet 80 mg PO DAILY levothyroxine 100 mcg capsule 100 mcg PO DAILY pregabalin [Lyrica] 50 MG capsule Qty: 0 insulin glargine [Lantus Solostar U-100 Insulin] 100 UNIT/1 ML insulin pen 50 unit SQ QAM Qty: 1 1RF insulin aspart U-100 [Novolog FlexPen U-100 Insulin] 100 UNIT/1 ML insulin pen 15 unit SQ TIDCC Qty: 1 1RF Glucose: Home Monitoring Kit ACHS Qty: 1 0RF Glucose: Test Strips ACHS Qty: 100 0RF albuterol sulfate [ProAir HFA] 90 mcg/actuation HFA aerosol inhaler 2 puff INHALATION Q4-6H PRN (Reason: shortness of breath or wheezing) Qty: 18 0RF azithromycin 250 mg tablet See Rx Instructions .ROUTE .COMPLEX Qty: 6 0RF Rx Instructions: take 500 mg today (day 1), then 250 mg for 4 days (days 2-5) Stand Alone Forms: Patient Portal/API
--- NOTE | 2023-08-10 20:35 | DI.CT.S_ITS ---
PROCEDURE: CT ANGIO HEAD AND NECK INDICATIONS: grullon x 3 weeks without resolution TECHNIQUE: After the administration of intravenous contrast, 1 mm thick sections acquired from the aortic arch through the [place] of [place]. 3-dimensional nxnquhr-obaonhlzj-czyunznfvo (MIP) and/or volume rendering reformats were acquired of the central intracranial vasculature and neck separately. For radiation dose reduction, the following was used: automated exposure control, adjustment of mA and/or kV according to patient size. COMPARISON: None. FINDINGS: Image quality: Diagnostic. BRAIN: CSF spaces: Ventricles are normal in size and shape. Basal cisterns are patent. No extra-axial fluid collections. Brain: No significant abnormality of the brain can be seen. Skull and face: Calvarium and facial bones appear intact, without suspicious lesions. Orbits appear normal. Sinuses: Sinuses and mastoids are clear. HEAD CT ANGIOGRAPHY: Anterior circulation: Intracranial internal carotid arteries are normal in size and flow. The flow within the paired anterior cerebral arteries is normal and symmetric. The flow within the middle cerebral arteries is normal and symmetric. The anterior communicating artery is seen. No aneurysms are seen. Posterior circulation: Visualized portions of the vertebral arteries demonstrate normal caliber, and join to form a normal appearing basilar artery. Flow within the posterior cerebral arteries is normal and symmetric. No aneurysms are seen. NECK CT ANGIOGRAPHY: Carotid system: The great vessels demonstrate a conventional anatomy as they arise from the aortic arch. The origins of the common carotid arteries appear patent. The common carotid arteries demonstrate normal caliber and courses. The bifurcation regions are both widely patent. The internal carotid arteries demonstrate normal calibers and courses. Posterior circulation: The origins of the vertebral arteries both appear widely patent. The more superior extracranial portions of both vertebral arteries also demonstrate normal courses and calibers. They join to form a normal appearing basilar artery. Soft tissues: Visualized neck soft tissues demonstrate no suspicious abnormalities. Bones: No suspicious bony lesions. Visualized cervical spine appears normally aligned. Mild degenerative changes of the spine. IMPRESSION: No significant intracranial arterial abnormality is seen. No significant abnormality is seen within the arteries of the neck. Any quantitative measurements of stenosis were performed using NASCET criteria. Dictated by: Evaristo Mccauley M.D. on 08/10/2023 at 21:34 Approved by: Evaristo Mccualey M.D. on 08/10/2023 at 21:36
--- NOTE | 2023-08-10 20:35 | DI.CT.S_ITS ---
PROCEDURE: CT HEAD/BRAIN WO CON INDICATIONS: grullon x 3 weeks without resolution TECHNIQUE: Noncontrast 4.5 mm thick angled axial sections acquired from the foramen magnum to the vertex, with coronal and sagittal reformats. For radiation dose reduction, the following was used: automated exposure control, adjustment of mA and/or kV according to patient size. COMPARISON: [facility], CT, HEAD WITHOUT CONTRAST, 05/19/2017, 5:15. FINDINGS: Image quality: Diagnostic. CSF spaces: Basal cisterns are patent. No extra-axial fluid collections. Ventricles are normal in size and shape. Brain: No midline shift. No intracranial masses or hemorrhage. Khoury-white matter interface is normal. Skull and face: Calvarium and visualized facial bones are intact, without suspicious lesions. Sinuses: Right paranasal sinus mucosal thickening. The mastoids are clear. IMPRESSION: No acute intracranial pathology. Dictated by: Evaristo Mccauley M.D. on 08/10/2023 at 21:32 Approved by: Evaristo Mccauley M.D. on 08/10/2023 at 21:33
[2023-08-10] MEDS: KETOROLAC 30 MG/ML VIAL 15 MG IV (21:26)
[2023-08-10] MEDS: METOCLOPRAMIDE 10 MG/2 ML INJ IV (22:01)
[2023-08-10] MEDS: MORPHINE 4 MG/ML INJ IV (22:11)
[2023-08-10] MEDS: AMOXICILLIN/CLAV 875/125 MG 1 TAB PO (22:11)
[2023-08-10] MEDS: ONDANSETRON 4 MG ODT PREPACK 1 BOTTLE MISC (22:41)
[2023-08-10] MEDS: TRAMADOL 50 MG PREPACK 1 BOTTLE MISC (22:41)
== END 2023-08-10 22:46 | disposition home or self-care (01) ==
PROVIDERS: Emergency Provider Emergency Medicine; Family Provider Family Medicine
DX: J32.9 Chronic sinusitis, unspecified (principal); R51.9 Headache, unspecified; Z79.899 Other long term (current) drug therapy
CPT/HCPCS: 70450; 70496; 70498; 80053; 85025; 96361; 96374; 96375; 99284; J1885; J2270; J2405; J2765; Q9967